=== PATIENT | female | born 1970 | race Caucasian/White ===

== ENCOUNTER 2017-06-26 12:28 | Observation (INO) | payer BC ==
--- NOTE | 2017-06-26 12:47 | DR.H&P ---
H&P - History & Physical for Day of: H&P Date: 06/26/17 - Chief Complaint Chief Complaint: CHEST PAIN, CHEST PRESSURE, SOB - History of Present Illness History of Present Illness: patient is a 47-year-old white female who presents to the office today with complaints of chest pain and pressure for several days. Patient states she previously had a sinus infection which has improved and then she had the onset of chest tightness and pressure. Patient states the pain was localized to the left side of chest Pain by nausea and sweating and shortness of breath. Patient states pain would come in waves and only last a few minutes. Patient had EKG in the office which showed some ST depression, and tachycardia. Patient has a history of diabetes and high blood pressure. Plan to admit patient for rule out cardiac source of chest pain including serial EKGs and cardiac enzymes. We will also consult respiratory sales project administrator, chest x-ray on admission. - Past Medical History Past Medical History: Diabetes, GERD, Hypertension, Hypothyroidism - Past Surgical History Surgical History: Other - Social History Does patient currently use any type of tobacco product: No Have you used tobacco products in the last 12 months: Yes Type of Tobacco Use: None Does any household member use tobacco: No Alcohol Use: None Drug Use: None - Review of Systems Constitutional: Weakness Eyes: No Symptoms Reported ENT: No Symptoms Reported Respiratory: Shortness of Breath Cardiovascular: Chest Pain Gastrointestinal: Nausea Genitourinary: No Symptoms Reported Musculoskeletal: No Symptoms Reported Skin: No Symptoms Reported Neurological: No Symptoms Reported Oriented: Normal Eyes: Normal Ear: Normal Nose: Normal Throat: Normal Respiratory: RLL Diminished, LLL Diminished Cardiovascular: Tachycardia. negative: Edema : Normal Auscultation: Bowel Sounds: Normal Palpation: Normal Tenderness: Normal Skin: Normal Musculoskeletal: Normal, Right, Left, Shoulder, Tender (c spine) Mood Description: Calm Speech Pattern: Clear, Appropriate - Assessment/Plan (1) Chest pain Status: Acute Plan: admit, EKGs and serial cardiac enzymes, chest x-ray on admission, respiratory consult, TSH and free T4 levels, supplemental O2 as needed, aspirin 325 daily blood sugar control and sliding scale insulin, resume home medication (2) Shortness of breath Status: Acute (3) Hypertension Status: Acute (4) Diabetes Status: Acute (5) Hypothyroid Status: Acute
[2017-06-26 14:41] LABS: BASOPHILS # (AUTO) 0.1 X10^3/uL (0.0-0.1); BASOPHILS % (AUTO) 0.8 % (0.2-1.0); EOSINOPHILS # (AUTO) 0.1 x10^3/uL (0.0-0.2); EOSINOPHILS % (AUTO) 0.7 % (0.9-2.9); HEMATOCRIT 45.7 % (36.0-47.0); HEMOGLOBIN 15.8 g/dL (12.0-16.0); LYMPHOCYTES # (AUTO) 2.6 X10^3/uL (1.3-2.9); LYMPHOCYTES % (AUTO) 18.8 % (21.0-51.0); MEAN CORPUSCULAR HEMOGLOBIN 30.2 pg (27.0-34.0); MEAN CORPUSCULAR HGB CONC 34.6 g/dL (33.0-35.0); MEAN CORPUSCULAR VOLUME 87.3 fL (80.0-100.0); MONOCYTES # (AUTO) 0.6 x10^3/uL (0.3-0.8); MONOCYTES % (AUTO) 4.4 % (0.0-13.0); NEUTROPHILS # (AUTO) 10.3 x10^3/uL (2.2-4.8); NEUTROPHILS % (AUTO) 75.3 % (42.0-75.0); PLATELET COUNT 431 X10^3/uL (150.0-450.0); RED BLOOD COUNT 5.24 X10^6/uL (3.5-5.4); RED CELL DISTRIBUTION WIDTH 12.3 % (11.6-16.5); WHITE BLOOD COUNT 13.6 X10^3/uL (3.6-10.0)
[2017-06-26 15:06] LABS: ALANINE AMINOTRANSFERASE 27 Units/L (12-78); ALKALINE PHOSPHATASE 116 Units/L (46-116); ASPARTATE AMINO TRANSFERASE 14 Units/L (15-37); BLOOD UREA NITROGEN 11 mg/dL (7-18); CALCIUM 9.8 mg/dL (8.5-10.1); CARBON DIOXIDE 25.9 mmol/L (21-32); CHLORIDE 97 mmol/L (98-107); COR NA(FOR HYPERGLY) 138 mmol/L (136-145); FREE T4 (FREE THYROXINE) 1.07 ng/dL (0.76-1.46); MAGNESIUM 1.8 mg/dL (1.7-2.9); SODIUM 135 mmol/L (136-145); TOTAL PROTEIN 8.5 g/dL (6.4-8.2); TSH (3RD GENERATION) 1.221 uIU/mL (0.358-3.74); eGFR BLACK RACES > 60 (>60); eGFR NON BLACK RACES > 60 (>60)
[2017-06-26 15:10] LABS: CKMB % 2.9 % (<4); CREATINE KINASE 35 Units/L (26-192); CREATINE KINASE MB < 1.0 ng/mL (0-4.0); TROPONIN I < 0.02 ng/mL (0-1.5)
--- NOTE | 2017-06-26 16:14 | RAD ---
Examination: AP chest History: Elevated heart rate Findings: Normal heart size with clear lungs. There is no evidence for pleural fluid, CHF or other ac josé luis process. Impression: No acute abnormality demonstrated. Reported By:
[2017-06-26 16:29] LABS: BILIRUBIN,URINE NEGATIVE (NEGATIVE); BLOOD/HEMOGLOBIN,URINE NEGATIVE (NEGATIVE); GLUCOSE, URINE 4+ (NEGATIVE); KETONES,URINE 2+ (NEGATIVE); LEUKOCYTE ESTERASE ,URINE NEGATIVE (NEGATIVE); NITRITES,URINE NEGATIVE (NEGATIVE); PROTEIN,URINE NEGATIVE (NEGATIVE); UROBILINOGEN,URINE NORMAL (NORMAL)
[2017-06-26 16:46] LABS: COLOR,URINE YELLOW (YELLOW)
[2017-06-26 16:47] LABS: AMORPHOUS SEDIMENT,UR TRACE /HPF (NEGATIVE); APPEARANCE,URINE CLEAR (CLEAR); BACTERIA,URINE 1+ /HPF (NEGATIVE); RBC,URINE NONE SEEN /HPF (NEGATIVE); SQUAMOUS EPITHELIAL CELL,UR FEW /HPF (NEGATIVE)
[2017-06-26 18:38] VITALS: BMI 27.3
[2017-06-26] MEDS: ASPIRIN PO SCH (18:59)
[2017-06-26] MEDS ORDERED: SNACK - Diabetic Appropriate PO SCH (20:00)
[2017-06-26 21:02] LABS: CKMB % 3.3 % (<4); CREATINE KINASE 30 Units/L (26-192); CREATINE KINASE MB < 1.0 ng/mL (0-4.0); TROPONIN I < 0.02 ng/mL (0-1.5)
[2017-06-26] MEDS: HumuLIN R SUBCUT PRN (21:32)
[2017-06-27 02:50] LABS: CKMB % 2.3 % (<4); CREATINE KINASE 43 Units/L (26-192); CREATINE KINASE MB < 1.0 ng/mL (0-4.0); TROPONIN I < 0.02 ng/mL (0-1.5)
[2017-06-27 03:03] LABS: CHOL/HDL RATIO 4.6 (0.0-5.0)
[2017-06-27] MEDS: HumuLIN R SUBCUT PRN (06:04)
[2017-06-27] MEDS ORDERED: NS 1000 ML 1,000 ML IV ONE (08:24)
[2017-06-27] MEDS ORDERED: PROTONIX INJ 40 MG VIAL IVP SCH (09:00)
[2017-06-27] MEDS: ZITHROMAX INJ 500 MG VIAL 500 MG in NS 250 ML IV 250 ML IV SCH ×2 (09:08→09:18)
[2017-06-27] MEDS: ASPIRIN PO SCH (09:18)
[2017-06-27] MEDS: PULMICORT NEB TX 0.5 MG NEB SCH ×2 (09:44)
[2017-06-27 14:38] VITALS: BP 127/72
== END 2017-06-27 15:05 | disposition home or self-care (01) ==
LOC: MED/SURG 12:28
PROVIDERS: ADMIT Internal Medicine; ATTEND Internal Medicine
DX: R07.89 Other chest pain (principal); R06.02 Shortness of breath; E11.65 Type 2 diabetes mellitus with hyperglycemia; K21.9 Gastro-esophageal reflux disease without esophagitis; I10 Essential (primary) hypertension; E03.8 Other specified hypothyroidism; R00.0 Tachycardia, unspecified; D72.828 Other elevated white blood cell count
CPT/HCPCS: 36415; 71010; 80053; 80061; 81001; 82550; 82553; 83735; 84439; 84443; 84484; 85025; 85378; 85610; 85730; 93005; 93010; 94640; 94760; A4216; A4222; C9113; G0378; J0456; J1815; J7626